=== PATIENT | female | born 1995 ===

== ENCOUNTER 2019-05-23 14:43 | Emergency (ER) | payer OTHER ==
[2019-05-23 15:02] VITALS: BP 119/56
--- NOTE | 2019-05-23 15:19 | UC ---
FLU HPI - HPI Summary HPI Summary: 24-year-old female presenting with sore throat, headache, body aches 2-3 days. Patient also notes dry cough for the last 2 weeks. Denies shortness breath and wheezing. Denies nausea or vomiting. Denies known fevers and chills. Normal appetite. Taking Advil for symptom relief. - History of Current Complaint Chief Complaint: UCGeneralIllness Stated Complaint: ST,DIEZ Hx Obtained From: Patient Hx Last Menstrual Period: 05/09/19 Pain Intensity: 6 - Allergy/Home Medications Allergies/Adverse Reactions: Allergies Allergy/AdvReac Type Severity Reaction Status Date / Time amoxicillin [From Augmentin] Allergy Hives Verified 05/23/19 15:02 clavulanic acid Allergy Hives Verified 05/23/19 15:02 [From Augmentin] Home Medications: Home Medications Oral Contraceptives DAILY 05/23/19 [History] Penicillin VK 500 MG TAB(NF) [Penicillin VK 500 mg Tab] 500 mg PO BID #20 tab [Rx] PMH/Surg Hx/FS Hx/Imm Hx - Surgical History Surgical History: None - Family History Known Family History: Positive: Non-Contributory - Social History Alcohol Use: Rare Substance Use Type: None Smoking Status (MU): Never Smoked Tobacco Review of Systems All Other Systems Reviewed And Are Negative: Yes Constitutional: Positive: Negative ENT: Positive: Sore Throat Respiratory: Positive: Cough Cardiovascular: Positive: Negative Gastrointestinal: Positive: Negative Musculoskeletal: Positive: Myalgia Neurological/Mental Status: Positive: Headache Physical Exam - Summary Physical Exam Summary: Vital Signs Reviewed: Yes A+Ox3, no distress Eyes: Conjunctiva Clear ENT: Hearing grossly normal, TM x 2 clear, moist, uvula midline, no exudate, + pharyngeal erythema, +tonsillar enlargement Neck: Positive: Supple Respiratory: Positive: No respiratory distress, No accessory muscle use + CTA throughout no w/r Cardiovascular: RRR nl s1, s2 no m/r Musculoskeletal Exam: VERNON x 4 without difficulty Neurological: Positive: Alert Psychological: Positive: age appropriate behavior Skin: Positive: no rash, no ecchymosis Vital Signs: Initial Vital Signs Temp 98.5 F 05/23/19 14:57 Pulse 81 05/23/19 14:57 Resp 16 05/23/19 14:57 BP 119/56 05/23/19 14:57 Pulse Ox 100 05/23/19 14:57 Lab Results 05/23/19 05/23/19 Range/Units 15:33 15:35 Influenza A (Rapid) Negative (Negative) Influenza B (Rapid) Negative (Negative) Group A Strep Rapid Positive H (Negative) Flu Course/Dx - Course Course Of Treatment: Positive rapid strep test. I treated patient with penicillin. Patient states allergy to augmentin only and has taken penicillin in the past without any issues. Educated on symptomatic treatment and instructed to follow up with [facility] if symptoms persist. Patient voiced understanding and agreed with treatment plan. - Differential Dx/Diagnosis Differential Diagnosis/HQI/PQRI: Bronchitis, Influenza, Upper Respiratory Infection Provider Diagnosis: Strep pharyngitis Discharge ED - Sign-Out/Discharge Documenting (check all that apply): Patient Departure All imaging exams completed and their final reports reviewed: No Studies - Discharge Plan Condition: Stable Disposition: HOME Prescriptions: Penicillin VK 500 MG TAB(NF) [Penicillin VK 500 mg Tab] 500 mg PO BID #20 tab Patient Education Materials: Strep Throat (ED) Forms: *School Release Referrals: [facility] [Outside] - If Needed Additional Instructions: You tested positive for strep throat today. Take penicillin as prescribed for the treatment of strep throat. You may continue with advil as directed and use over the counter throat sprays or lozenges for symptom relief. Replace your toothbrush 24 hours after taking the antibiotics. Follow up with your primary care provider or the [facility] listed below if symptoms do not resolve in 10 days. - Billing Disposition and Condition Condition: STABLE Disposition: Home
[2019-05-23 15:47] LABS: Influenza A Molecular Negative (Negative); Influenza B Molecular Negative (Negative)
== END 2019-05-23 15:54 | disposition home or self-care (01) ==
LOC: UCCORT 14:43
DX: J02.0 Streptococcal pharyngitis (principal); R05 Cough; Z88.0 Allergy status to penicillin
CPT/HCPCS: 87651; 99202; G0463